=== PATIENT | male | born 1970 | race American Indian/Alaskan Native ===

== ENCOUNTER 2018-10-08 10:02 | Outpatient (CLI) | payer OTHER | END 2018-10-08 10:03 | disposition home or self-care (01) | LOC: C.PAT 10:02 | DX: M54.5 Low back pain (principal) ==

== ENCOUNTER 2018-10-15 14:05 | Emergency (ER) | payer OTHER ==
[2018-10-15 14:05] VITALS: BMI 35.6
[2018-10-15 14:25] VITALS: BP 154/79; PULSE 77; RESP 18; TEMP 99.1; O2SAT 97
--- NOTE | 2018-10-15 15:49 | RAD ---
Date of service: 10/15/2018 HISTORY: <info_study_reason> COMPARISON: 10/08/2018. TECHNIQUE: Chest PA and lateral FINDINGS: LINES AND TUBES: None. LUNG AND PLEURA: The lungs are well inflated and clear. No pleural effusion or pneumothorax. HEART AND MEDIASTINUM: The heart is not enlarged. No aortic atherosclerotic calcifications present. The hilar and mediastinal contours are within normal limits. SKELETAL STRUCTURES: The bony structures are within normal limits for the patient's age. VISUALIZED UPPER ABDOMEN: Normal. OTHER FINDINGS: None. IMPRESSION: No active pulmonary disease.
[2018-10-15] MEDS ORDERED: Amoxicillin-Clav 875-125 mg Tab PO STA (17:24)
--- NOTE | 2018-10-15 17:25 | C.PDOC ---
History Of Present Illness 48-year-old male presents to the ED for evaluation of congestion, headache, sinus pain behind eyes and sore throat which began 2 weeks ago. Patient states he is scheduled for a back surgery next week, and wants to make sure he is well before the surgery. Patient denies fever, chills, nausea, vomiting. Time Seen by Provider: 10/15/18 14:24 Chief Complaint (Nursing): Flu-like Symptoms History Per: Patient History/Exam Limitations: no limitations Onset/Duration Of Symptoms: Other (two weeks ) Current Symptoms Are (Timing): Still Present Location Of Pain: Headache Associated Symptoms: Sore Throat, Nasal Congestion. denies: Fever, Chills, Nausea, Vomiting Additional History Per: Patient Past Medical History Reviewed: Historical Data, Nursing Documentation, Vital Signs Vital Signs: Last Vital Signs Temp 99.1 F 10/15/18 14:22 Pulse 77 10/15/18 14:22 Resp 18 10/15/18 14:22 BP 154/79 H 10/15/18 14:22 Pulse Ox 97 10/15/18 14:22 Primary Care Provider: FAMILY PROVIDER,NO - Medical History PMH: Back Problems Denies: Chronic Kidney Disease Surgical History: Back Surgery (cervical) - [facility] EXCISION OF CERVICAL VERTEBRAL DISC, OPEN APPROACH (07/26/18) EXTRACTION OF VERTEBRAL BONE MARROW, PERCUTANEOUS APPROACH (07/26/18) FUSION CERV JT W INTBD FUS DEV, ANT APPR A COL, OPEN (07/26/18) Family History: States: Unknown Family Hx - Social History Hx Tobacco Use: Yes Hx Alcohol Use: No Hx Substance Use: Yes (cannabis) - Immunization History Hx Tetanus Toxoid Vaccination: No Hx Influenza Vaccination: No Hx Pneumococcal Vaccination: No Review Of Systems Constitutional: Negative for: Fever, Chills ENT: Positive for: Nose Congestion, Throat Pain Gastrointestinal: Negative for: Nausea, Vomiting Neurological: Positive for: Headache Physical Exam - Physical Exam Appears: Non-toxic, No Acute Distress Skin: Normal Color, Warm, Dry Head: Tenderness (over sinuses ) Eye(s): bilateral: Normal Inspection Ear(s): Bilateral: Normal Nose: Other (congestion ) Oral Mucosa: Moist Throat: Normal, No Erythema, No Exudate Neck: Supple Chest: Symmetrical, No Deformity, No Tenderness Cardiovascular: Rhythm Regular, No Murmur Respiratory: Normal Breath Sounds, No Rales, No Rhonchi, No Wheezing Extremity: Normal ROM, Capillary Refill (less than 2 seconds ) Neurological/Psych: Oriented x3, Normal Speech, Normal Cognition ED Course And Treatment O2 Sat by Pulse Oximetry: 97 (on RA) Pulse Ox Interpretation: Normal - Other Rad CXR X-Ray: Viewed By Me, Read By Radiologist Interpretation: Date of service: 10/15/2018. HISTORY: <info_study_reason>. COMPARISON: 10/08/2018. TECHNIQUE: Chest PA and lateral. FINDINGS: LINES AND TUBES: None. LUNG AND PLEURA: The lungs are well inflated and clear. No pleural effusion or pneumothorax. HEART AND MEDIASTINUM: The heart is not enlarged. No aortic atherosclerotic calcifications present. The hilar and mediastinal contours are within normal limits. SKELETAL STRUCTURES: The bony structures are within normal limits for the patient's age. VISUALIZED UPPER ABDOMEN: Normal. OTHER FINDINGS: None. IMPRESSION: No active pulmonary disease. Progress Note: CXR ordered and reviewed. Augmentin PO and Flonase VIVIAN adminis tered. On reassessment, patient is resting comfortably, showing no signs of distress and is stable for discharge. Patient is advised to follow up with his PMD within 1-2 days for further evaluation. Disposition - Disposition Referrals: Michael Ellis MD [Staff Provider] - Disposition: HOME/ ROUTINE Disposition Time: 17:59 Condition: STABLE Additional Instructions: Follow up with PMD /ENT within 2-3 days. Return to ED if feel worse. 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 - Scribe Statement The provider has reviewed the documentation as recorded by the Scribe (Stephanie Knox) All medical record entries made by the Scribe were at my direction and personall y dictated by me. I have reviewed the chart and agree that the record accurately reflects my personal performance of the history, physical exam, medical decision making, and the department course for this patient. I have also personally directed, reviewed, and agree with the discharge instructions and disposition.
[2018-10-15] MEDS ORDERED: Fluticasone Nasal 50 mcg/Spray NAS STA (17:29)
[2018-10-15] MEDS ORDERED: Amoxicillin-Clav 875-125 mg Tab PO ONE (17:30)
== END 2018-10-15 18:12 | disposition home or self-care (01) ==
LOC: C.ER 14:05
DX: J32.9 Chronic sinusitis, unspecified (principal)